=== PATIENT | female | born 1995 | race American Indian/Alaskan Native ===

== ENCOUNTER 2020-01-02 02:07 | Emergency (ER) | payer MEDICAID ==
[2020-01-02] MEDS ORDERED: Sodium Chloride 0.9% 2.5 ML Syringe FLUSH PRN (02:11)
[2020-01-02] MEDS ORDERED: Sodium Chloride 0.9% 10 ML Syringe FLUSH PRN (02:11)
[2020-01-02] MEDS ORDERED: Sodium Chloride 0.9% 1,000 ML IV ONE (02:13)
--- NOTE | 2020-01-02 02:18 | EDM.PDOC ---
ED HPI GENERAL MEDICAL PROBLEM - General Stated Complaint: AMB Time Seen by Provider: 01/02/20 02:14 Source of Information: Reports: EMS - History of Present Illness INITIAL COMMENTS - FREE TEXT/NARRATIVE: History of present illness: [] Patient was found in the street with multiple injuries that appear Idris on multiple surfaces of her trunk and extremities as well as a hematoma with some bleeding in the posterior occipital forehead. The patient is unable to tell a history. She does mumble at times. 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 She is known to 1 of the hospital workers and it is reported to me that she is known to drink alcohol but we do not know the circumstances or what happened tonight at all. Review of systems: As per history of present illness and below otherwise all systems reviewed and negative. Past medical history: As per history of present illness and as reviewed below otherwise noncontributory. Surgical history: As per history of present illness and as reviewed below otherwise noncontributory. Social history: No reported history of drug or alcohol abuse. Family history: As per history of present illness and as reviewed below otherwise noncontributory. Physical exam: Constitutional - well developed, well-nourished and in no acute distress HEENT -boggy hematoma with abrasion on the right occiput EYES - full EOM, PERRL, no icterus - no evidence of inflammation, injection, or drainage Respiratory - no respiratory distress, equal bilateral expansion, lungs clear to auscultation and no abnormal lung sounds. Multiple abrasions on the back of the chest. Cardiovascular - Regular Rhythm with S1 and S2 appreciated and no murmur, gallop or rub. GI - abdomen soft without distension or organomegaly - normal bowel sounds - no guard or rebound Musculoskeletal shoulder girdle and pelvic girdle intact without crepitation or abnormal movement. Joints and long bones appear intact. No gross deformity of long bones or joints - no tenderness, swelling or edema Neurologic -possible but resists anything painful and resisted efforts to remove her clothing to expose her for further examination. Unable to express any refusal. She makes unintelligible utterances that are clearly able to be heard. She does localize painful stimulus. 1 point she opened her eyes to command. This is intermittent. Initial Glascow varies between 9 and 10.- CN II-XII ariel ssly intact - motor sensory and coordination symmetrically normal Psychiatric - appropriate mood and affect with normal thought content Hematologic - No petechiae or purpura - mucosa appropriate color and sclera not pale - normal nail bed color and refill Integument -abrasions over extremities, which are deep. No rash or evidence of trauma - normal turgor Diagnostics: [] Therapeutics: [] Impression: [] Plan: [] Definitive disposition and diagnosis as appropriate pending reevaluation and review of above. - Related Data Allergies Allergy/AdvReac Type Severity Reaction Status Date / Time No Known Allergies Allergy Verified 09/01/18 08:35 Home Meds: Home Meds . 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: 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 Musculoskeletal History: Reports: None Neurological History: Reports: None Psychiatric History: Reports: Anxiety, Suicide Attempt, Suicidal Ideation Endocrine/Metabolic History: Reports: None Hematologic History: Reports: None Immunologic History: Reports: None Oncologic (Cancer) History: Reports: None Dermatologic History: Reports: None - Infectious Disease History Infectious Disease History: Reports: Chicken Pox - Past Surgical History Head Surgeries/Procedures: Reports: None Female Surgical History: Reports: Section Social & Family History - Family History Family Medical History: Noncontributory - Caffeine Use Caffeine Use: Reports: Coffee, Energy Drinks, Soda, Tea - Living Situation & Occupation Living situation: Reports: with Family ED ROS GENERAL - Review of Systems Review Of Systems: Unable To Obtain (Patient is nonverbal at this time) Reason Not Obtained: Not verbal ED EXAM, GENERAL - Physical Exam Exam: See Below Free Text/Narrative:: Initial physical exam as in the HPI. Repeat exams as the patient becomes more able to be examined with cooperation will be placed in the course if this happens. ED GENERAL MEDICAL PROCEDURES - Endotracheal Intubation Time of Intubation: 03:00 ET Intubation Indication: Airway Protection Preparation: Suction Pre-Oxygenation: Assisted with BVM Anesthesia Meds: Etomidate, Rocuronium Placement: Orotracheal Cords Visualized: Yes ETT Size In mm: 7 Number of Attempts: 1 Confirmed By: CO2 Indicator, Bilateral Breath Sounds, Chest Xray Tube Secured By: By RT Endotracheal Intubation Comment: After cervical spine CT was read by the radiologist the patient had a paralytic and sedation medication given and then was placed in the position for good visualization with the cord with a MAC blade. A 7 oh endotracheal tube was passed through the cords with direct visualization and noted by all parameters including end-tidal CO2, auscultation, and x-ray to be in proper position. Was fixed by an endotracheal tube mccracken and oral gastric tube insertion was initiated. Course - Vital Signs Text/Narrative:: I attended the patient in the CT scanner and the initial past did not show any large intracranial bleed or injury. Goal was for the most part grossly intact. It certainly requires further scrutiny by me and the radiologist. Rubber Process Hand confirmed not only the subdural in the left frontal but bilateral epidurals no fracture. We do not have neurosurgery nor did we even have an ICU bed available tonight. Discussed with at the emergency department of [facility] and he accepted her for emergency transfer. This would most likely be by flight Patient was intubated uneventfully using RSI. This make her stable for transport. Signs remained stable. 3:12 AM awaiting helicopter arrival the patient is stable at this point. Critical care time the total 4 patient evaluation evaluation of studies and res ults reevaluation of the patient, consultation with other providers and transport and law enforcement as well as documentation was 34 minutes of critical time that did not include the separate procedure. - Orders/Labs/Meds Orders: Active Orders 24 hr Category Date Time Status Chest 1V Frontal [CR] Stat Exams 01/02/20 02:11 Ordered Pelvis 1V or 2V [CR] Stat Exams 01/02/20 02:12 Taken COMPREHENSIVE METABOLIC PN,CMP [CHEM] Stat Lab 01/02/20 02:45 Received DRUG SCREEN, URINE [URCHEM] Stat Lab 01/02/20 02:11 Ordered ETOH [ETHANOL BLOOD MEDICAL] [CHEM] Stat Lab 01/02/20 02:45 Received LIPASE [CHEM] Stat Lab 01/02/20 02:45 Received TYPE AND SCREEN [BBK] Stat Lab 01/02/20 02:50 Received UA W/EDWARD RFLX IF INDICATED [URIN] Stat Lab 01/02/20 02:11 Ordered Sodium Chloride 0.9% [Normal Saline] 1,000 ml Med 01/02/20 02:13 Active IV .BOLUS Sodium Chloride 0.9% [Saline Flush] Med 01/02/20 02:11 Active 10 ml FLUSH ASDIRECTED PRN Sodium Chloride 0.9% [Saline Flush] Med 01/02/20 02:11 Active 2.5 ml FLUSH ASDIRECTED PRN Saline Lock Insert [OM.PC] Stat Oth 01/02/20 02:11 Ordered Medication Orders Sodium Chloride (Normal Saline) 1,000 mls @ 999 mls/hr IV .BOLUS ONE Stop: 01/02/20 03:13 Sodium Chloride (Saline Flush) 10 ml FLUSH ASDIRECTED PRN PRN Reason: Keep Vein Open Sodium Chloride (Saline Flush) 2.5 ml FLUSH ASDIRECTED PRN PRN Reason: Keep Vein Open Labs: Laboratory Tests 01/02/20 01/02/20 01/02/20 Range/Units 02:45 02:45 02:47 WBC 16.97 H (4.0-11.0) K/uL RBC 4.86 (4.30-5.90) M/uL Hgb 14.8 (12.0-16.0) g/dL Hct 45.4 (36.0-46.0) % MCV 93.4 (80.0-98.0) fL MCH 30.5 (27.0-32.0) pg MCHC 32.6 (31.0-37.0) g/dL RDW Std Deviation 48.8 (28.0-62.0) fl RDW Coeff of Sonu 14 (11.0-15.0) % Plt Count 296 (150-400) K/uL MPV 9.20 (7.40-12.00) fL Neut % (Auto) 78.2 (48.0-80.0) % Lymph % (Auto) 16.4 (16.0-40.0) % [place] % (Auto) 5.1 (0.0-15.0) % Eos % (Auto) 0.1 (0.0-7.0) % Baso % (Auto) 0.2 (0.0-1.5) % Neut # (Auto) 13.3 H (1.4-5.7) K/uL Lymph # (Auto) 2.8 H (0.6-2.4) K/uL [place] # (Auto) 0.9 H (0.0-0.8) K/uL Eos # (Auto) 0.0 (0.0-0.7) K/uL Baso # (Auto) 0.0 (0.0-0.1) K/uL Nucleated RBC % 0.0 /100WBC Nucleated RBCs # 0 K/uL POC Glucose 120 H (60-110) mg/dL HCG, Qual NEGATIVE (NEG) Meds: Medications Generic Name Dose Route Start Last Admin Trade Name Freq PRN Reason Stop Dose Admin Sodium Chloride 1,000 mls @ 999 mls/hr 01/02/20 02:13 Normal Saline IV 01/02/20 03:13 .BOLUS ONE Sodium Chloride 10 ml 01/02/20 02:11 Saline Flush FLUSH ASDIRECTED PRN Keep Vein Open Sodium Chloride 2.5 ml 01/02/20 02:11 Saline Flush FLUSH ASDIRECTED PRN Keep Vein Open Discontinued Medications Generic Name Dose Route Start Last Admin Trade Name Freq PRN Reason Stop Dose Admin Ondansetron HCl 4 mg 01/02/20 02:35 01/02/20 02:42 Zofran IVPUSH 01/02/20 02:36 4 mg ONETIME ONE Administration Ondansetron HCl Confirm 01/02/20 02:37 Zofran Administered 01/02/20 02:38 Dose 4 mg .ROUTE .STK-MED ONE Departure - Departure Time of Disposition: 03:31 Disposition: DC/Tfer to Acute Hospital 02 Condition: Serious Clinical Impression: Epidural hematoma, Subdural hematoma, Fracture of occipital bone of skull with loss of consciousness, Abrasions of multiple sites - Discharge Information - My Orders Last 24 Hours: My Active Orders 01/02/20 02:11 Chest 1V Frontal [CR] Stat DRUG SCREEN, URINE [URCHEM] Stat UA W/EDWARD RFLX IF INDICATED [URIN] Stat Sodium Chloride 0.9% [Saline Flush] 10 ml FLUSH ASDIRECTED PRN Sodium Chloride 0.9% [Saline Flush] 2.5 ml FLUSH ASDIRECTED PRN Saline Lock Insert [OM.PC] Stat 01/02/20 02:12 Pelvis 1V or 2V [CR] Stat 01/02/20 02:13 Sodium Chloride 0.9% [Normal Saline] 1,000 ml IV .BOLUS 01/02/20 02:45 COMPREHENSIVE METABOLIC PN,CMP [CHEM] Stat ETOH [ETHANOL BLOOD MEDICAL] [CHEM] Stat LIPASE [CHEM] Stat 01/02/20 02:50 TYPE AND SCREEN [BBK] Stat - Assessment/Plan Last 24 Hours: My Active Orders 01/02/20 02:11 Chest 1V Frontal [CR] Stat DRUG SCREEN, URINE [URCHEM] Stat UA W/EDWARD RFLX IF INDICATED [URIN] Stat Sodium Chloride 0.9% [Saline Flush] 10 ml FLUSH ASDIRECTED PRN Sodium Chloride 0.9% [Saline Flush] 2.5 ml FLUSH ASDIRECTED PRN Saline Lock Insert [OM.PC] Stat 01/02/20 02:12 Pelvis 1V or 2V [CR] Stat 01/02/20 02:13 Sodium Chloride 0.9% [Normal Saline] 1,000 ml IV .BOLUS 01/02/20 02:45 COMPREHENSIVE METABOLIC PN,CMP [CHEM] Stat ETOH [ETHANOL BLOOD MEDICAL] [CHEM] Stat LIPASE [CHEM] Stat 01/02/20 02:50 TYPE AND SCREEN [BBK] Stat
[2020-01-02] MEDS ORDERED: Ondansetron 4 MG/2 ML SDV IVPUSH ONE (02:35)
[2020-01-02] MEDS ORDERED: Ondansetron 4 MG/2 ML SDV ONE (02:37)
--- NOTE | 2020-01-02 02:53 | CT ---
Indication: Trauma Technique: Nonenhanced axial CT imaging through the head. Sagittal and coronal reconstructions are provided. Comparison: None Findings: There is mild bilateral middle cranial fossae all subarachnoid hemorrhage. There is also a thin subdural hematoma over the left frontal cerebral convexity, measuring 2-3 mm in thickness. There is no mass effect or midline shift. There is no cerebral edema. Segal-white matter differentiation is preserved. The ventricles are normal in size. The basal cisterns are patent. There is a nondisplaced right occipital fracture. There is also suggestion of a nondisplaced clival fracture. There is a moderate sized right parieto-occipital scalp hematoma. The mastoid air cells and middle ear cavities are aerated. There is mucosal thickening and fluid throughout the maxillary, ethmoid, sphenoid sinuses and in the left frontal sinus. Impression: 1. Mild bilateral middle cranial fossa subarachnoid hemorrhage. Thin left frontal subdural hematoma. 2. Nondisplaced right occipital fracture with right parieto-occipital scalp hematoma. Possible nondisplaced clival fracture. 3. Extensive paranasal sinus mucosal thickening and fluid. Findings may represent sinusitis. However, given the history of trauma, facial CT is recommended to exclude facial fracture. Please note that all CT scans at this facility use dose modulation, iterative reconstruction, and/or weight-based dosing when appropriate to reduce radiation dose to as low as reasonably achievable. Dictated by Patty Durant MD @ Jan 02 2020 2:44AM Signed by Dr. Patty Durant @ Jan 02 2020 2:52AM
--- NOTE | 2020-01-02 02:59 | CT ---
Indication: Trauma Technique: Nonenhanced axial CT imaging through the cervical spine. Sagittal and coronal reconstructions are provided. Comparison: None Findings: The cervical vertebral bodies are normal in height. No fracture is demonstrated. There is normal spinal alignment. The atlantoaxial and atlantooccipital relationships are maintained. There is no prevertebral edema. The intervertebral disc spaces are normal in height. There is no significant narrowing of the spinal canal or neural foramina. Right occipital fracture is noted, better demonstrated on concurrent CT. Impression: No acute fracture or traumatic malalignment of the cervical spine. Please note that all CT scans at this facility use dose modulation, iterative reconstruction, and/or weight-based dosing when appropriate to reduce radiation dose to as low as reasonably achievable. Dictated by Patty Durant MD @ Jan 02 2020 2:52AM Signed by Dr. Patty Durant @ Jan 02 2020 2:57AM
[2020-01-02] MEDS ORDERED: propofoL 50 ML ONE (03:06)
[2020-01-02 03:11] LABS: BLOOD UREA NITROGEN,BUN 9 mg/dL (7.0-18.0); CARBON DIOXIDE,CO2 22.3 mmol/L (21.0-32.0); CHLORIDE,CL 106 mmol/L (98-107); GLUCOSE RANDOM 124 mg/dL (74-106); LIPASE 108 U/L (73-393); POTASSIUM,K 3.7 mmol/L (3.5-5.1); SODIUM,NA 146 mmol/L (136-145)
[2020-01-02] MEDS ORDERED: Midazolam 5 MG/ML SDV IVPUSH ONE (03:25)
[2020-01-02] MEDS ORDERED: Rocuronium 100 MG/10 ML Syringe IVPUSH ONE (03:26)
[2020-01-02] MEDS ORDERED: Etomidate 2 MG/ML 20 ML SDV IVPUSH ONE (03:26)
[2020-01-02] MEDS ORDERED: Midazolam 1 MG/ML 2 ML SDV ONE (03:29)
--- NOTE | 2020-01-02 03:48 | CR ---
Indication: Trauma Technique: AP views of the pelvis Comparison: None Findings: The pelvic ring and proximal femora are intact. The hip joints are normally located. The soft tissues of the pelvis are grossly unremarkable. Impression: No acute abnormality. Dictated by Patty Durant MD @ Jan 02 2020 3:44AM Signed by Dr. Patty Durant @ Jan 02 2020 3:45AM
[2020-01-02] MEDS ORDERED: propofoL 100 ML ONE (03:54)
--- NOTE | 2020-01-02 04:00 | CR ---
INDICATION: Trauma, post intubation TECHNIQUE: Portable supine AP view of the chest COMPARISON: None FINDINGS: The endotracheal tube tip lies 2.5 cm above the munir. Gastric tube loops in the gastric fundus with tip returning to the gastroesophageal junction. The lungs are clear. There is no sizable pleural effusion or pneumothorax, within limitations of supine technique. The cardiomediastinal silhouette is normal. The visualized osseous structures are unremarkable. IMPRESSION: 1. Endotracheal tube in appropriate position. 2. Gastric tube loops in the gastric fundus and terminates at the gastroesophageal junction. Readjustment recommended. Dictated by Patty Durant MD @ Jan 02 2020 3:59AM Signed by Dr. Patty Durant @ Jan 02 2020 3:59AM
--- NOTE | 2020-01-02 04:04 | CR ---
Indication: Gastric tube placement Technique: Portable supine AP view of the abdomen Comparison: Chest radiograph 01/02/2020 at 3:09 a.m. Findings/Impression: Gastric tube has been readjusted, now with its tip in the expected location of the gastric fundus. There is otherwise unremarkable sonographic appearance of the abdomen. Dictated by Patty Durant MD @ Jan 02 2020 4:02AM Signed by Dr. Patty Durant @ Jan 02 2020 4:02AM
[2020-01-02 04:05] VITALS: BP 129/78; PULSE 81
[2020-01-02] MEDS ORDERED: propofoL 100 ML IV SCH (05:30)
== END 2020-01-02 04:00 ==
LOC: MW.ED 02:07
DX: S02.119A Unspecified fracture of occiput, initial encounter for closed fracture (principal); S06.5X9A Traumatic subdural hemorrhage with loss of consciousness of unspecified duration, initial encounter; S06.4X9A Epidural hemorrhage with loss of consciousness of unspecified duration, initial encounter; S20.319A Abrasion of unspecified front wall of thorax, initial encounter; S50.812A Abrasion of left forearm, initial encounter; S60.812A Abrasion of left wrist, initial encounter; S40.211A Abrasion of right shoulder, initial encounter; S80.212A Abrasion, left knee, initial encounter; S90.511A Abrasion, right ankle, initial encounter; V89.9XXA Person injured in unspecified vehicle accident, initial encounter
CPT/HCPCS: 31500; 36415; 43752; 51702; 70450; 71045; 72125; 72170; 74018; 80053; 80305; 80307; 81001; 82962; 83690; 84703; 85025; 86850; 86900; 86901; 96374; 99285; G0390; J2250; J2405; J2704; J3490; J7030; 99291

== ENCOUNTER 2020-04-04 01:33 | Emergency (ER) | payer MEDICAID ==
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
[2020-04-04 02:10] VITALS: BP 141/89; PULSE 96
== END 2020-04-04 02:00 | disposition home or self-care (01) ==
LOC: MW.ED 01:33
DX: R05 Cough (principal); R10.9 Unspecified abdominal pain; Z87.891 Personal history of nicotine dependence
CPT/HCPCS: 99282; 99283

== ENCOUNTER 2020-04-12 21:59 | Emergency (ER) | payer MEDICAID ==
[2020-04-12 22:07] VITALS: BP 141/94; PULSE 110
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
== END 2020-04-12 22:22 ==
LOC: MW.ED 21:59
DX: F10.129 Alcohol abuse with intoxication, unspecified (principal); Z79.899 Other long term (current) drug therapy
CPT/HCPCS: 99282; 99284

== ENCOUNTER 2020-06-21 20:45 | Emergency (ER) | payer MEDICAID ==
[2020-06-21] MEDS ORDERED: diphenhydrAMINE 50 MG/ML SDV IM ONE (20:56)
[2020-06-21] MEDS ORDERED: Ketorolac 30 MG/ML SDV IM STA (20:56)
[2020-06-21] MEDS ORDERED: Prochlorperazine 10 MG/2 ML SDV IM ONE (20:57)
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
--- NOTE | 2020-06-21 22:03 | CT ---
INDICATION: Headache TECHNIQUE: CT head without contrast. COMPARISON: Head CT 01/02/2020 FINDINGS: CSF spaces: Within normal limits for age. Brain parenchyma: The guardado-white differentiation is normal. No sign of mass, hemorrhage, or midline shift. Skull base and calvarium: Mucosal thickening paranasal sinuses. The visualized orbits are grossly unremarkable. Right occipital bone fracture redemonstrated, similar in appearance compared to the prior exam. IMPRESSION: 1. No intracranial bleed or mass effect. 2. Right occipital bone fracture redemonstrated, similar in appearance compared to the study of 5 months prior. Please note that all CT scans at this facility use dose modulation, iterative reconstruction, and/or weight-based dosing when appropriate to reduce radiation dose to as low as reasonably achievable. Dictated by Joe Garcia MD @ Jun 21 2020 9:54PM Signed by Dr. Joe Garcia @ Jun 21 2020 10:02PM
[2020-06-21 22:33] VITALS: BP 107/69; PULSE 66
== END 2020-06-21 22:30 | disposition home or self-care (01) ==
LOC: MW.ED 20:45
DX: S09.90XA Unspecified injury of head, initial encounter (principal); G43.909 Migraine, unspecified, not intractable, without status migrainosus; F07.81 Postconcussional syndrome; Z79.899 Other long term (current) drug therapy; W22.8XXA Striking against or struck by other objects, initial encounter
CPT/HCPCS: 70450; 96372; 99283; J0780; J1200; J1885

== ENCOUNTER 2020-09-17 00:18 | Emergency (ER) | payer MEDICAID ==
[2020-09-17] MEDS ORDERED: Octyl 2-Cyanoacrylate 1 Tube TOP ONE (00:27)
[2020-09-17] MEDS ORDERED: OLANZapine 10 MG in Water For Injection, Sterile 2.1 ML IM ONE (00:42)
[2020-09-17] MEDS ORDERED: Sodium Chloride 0.9% 2.5 ML Syringe FLUSH PRN (00:47)
[2020-09-17] MEDS ORDERED: Sodium Chloride 0.9% 10 ML Syringe FLUSH PRN (00:47)
--- NOTE | 2020-09-17 00:48 | EDM.PDOC ---
ED HPI GENERAL MEDICAL PROBLEM - General Chief Complaint: Behavioral/Psych Stated Complaint: SUICIDAL Time Seen by Provider: 09/17/20 00:19 - History of Present Illness INITIAL COMMENTS - FREE TEXT/NARRATIVE: History of present illness: [] The patient is brought in by law enforcement. She does not want to be here. She wants to leave. She says she wants to . She says she has been under psychiatric care for years and been in hospitals multiple times that it has never benefit her. She tried to kill herself tonight which is the fifth effort she is made in her life according to her. She cut her left wrist and then told her mother. She asked her mother not to call EMS or the police because he wanted to be allowed to . The patient arrives unruly and resisting attempts to help her. When I told her she would have to be examined even if we had to sedate her she allowed us to get vital signs but then she became more and really began to pick at her wound on her left wrist and try to irritate it. Review of systems: As per history of present illness and below otherwise all systems reviewed and negative. Past medical history: As per history of present illness and as reviewed below otherwise noncontributory. Surgical history: As per history of present illness and as reviewed below otherwise noncontributory. Social history: No reported history of drug or alcohol abuse. Family history: As per history of present illness and as reviewed below otherwise noncontributory. Physical exam: Constitutional - well developed, well-nourished and in no acute distress HEENT - normocephalic, no evidence of trauma - external nose and mouth normal - no mass in neck and no JVD - mucosae moist EYES - full EOM, PERRL, no icterus - no evidence of inflammation, injection, or drainage Respiratory - no respiratory distress, equal bilateral expansion, lungs clear to auscultation and no abnormal lung sounds Cardiovascular - Regular Rhythm with S1 and S2 appreciated and no murmur, gallop or rub. GI - abdomen soft without distension or organomegaly - normal bowel sounds - no guard or rebound Musculoskeletal no gross deformity of long bones or joints - no tenderness, swelling or edema Neurologic - Alert and oriented times four - CN II-XII grossly intact - motor sensory and coordination symmetrically normal Psychiatric - appropriate mood and affect with normal thought content Hematologic - No petechiae or purpura - mucosa appropriate color and sclera not pale - normal nail bed color and refill Integument -vertical laceration on the dorsal wrist of the left hand which is hemostatic. No rash or evidence of trauma - normal turgor Diagnostics: [] Therapeutics: [] Impression: [] Plan: [] Definitive disposition and diagnosis as appropriate pending reevaluation and review of above. 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 Musculoskeletal History: Reports: Fracture Neurological History: Reports: Other (See Below) Other Neuro History: Skull Fracture Psychiatric History: Reports: Anxiety, Suicide Attempt, Suicidal Ideation Endocrine/Metabolic History: Reports: None Insulin Pump Model and International Editorial Producer: None Hematologic History: Reports: None Immunologic History: Reports: None Oncologic (Cancer) History: Reports: None Dermatologic History: Reports: None - Infectious Disease History Infectious Disease History: Reports: None - Past Surgical History Head Surgeries/Procedures: Reports: None Female Surgical History: Reports: Section Social & Family History - Family History Family Medical History: No Pertinent Family History - Caffeine Use Caffeine Use: Reports: None - Living Situation & Occupation Living situation: Reports: with Family ED ROS GENERAL - Review of Systems Review Of Systems: Comprehensive ROS is negative, except as noted in HPI. ED EXAM, GENERAL - Physical Exam Exam: See Below Free Text/Narrative:: My physical exam is in the HPI #1 Interpretation EKG Interpretation Comments: KG shows a sinus rhythm with a heart rate of 60 her CA interval is 112 and QT duration is 137. The QRS axis is 95. She has a left posterior fascicular block. I do not see a readily available EKG for comparison but this EKG results and impression of no acute injury or arrhythmia. Course - Vital Signs Text/Narrative:: Patient became very combative. He was given Zyprexa and then became comfortable 2:49 AM I had discussed this patient with Dr. West at [facility] and she accepted the patient in transfer. There is no ambulance available until shift change at 8:00 in the morning. [facility] does not have a crew to send. We will keep the patient comfortable here until we can accomplish the transfer. Because of EMS transport issues the patient is in the emergency department under our care waiting transport to [facility] at the time of the end of my shift. Last Recorded V/S: Last Vital Signs Temp 36.0 C L 09/17/20 05:22 Pulse 56 L 09/17/20 08:30 Resp 16 09/17/20 08:30 BP 96/87 09/17/20 08:30 Pulse Ox 100 09/17/20 08:30 - Orders/Labs/Meds Labs: Laboratory Tests 09/17/20 09/17/20 09/17/20 Range/Units 01:10 01:10 01:10 WBC 6.71 (4.0-11.0) K/uL RBC 4.32 (4.30-5.90) M/uL Hgb 13.5 (12.0-16.0) g/dL Hct 39.6 (36.0-46.0) % MCV 91.7 (80.0-98.0) fL MCH 31.3 (27.0-32.0) pg MCHC 34.1 (31.0-37.0) g/dL RDW Std Deviation 41.2 (28.0-62.0) fl RDW Coeff of Sonu 13 (11.0-15.0) % Plt Count 276 (150-400) K/uL MPV 9.00 (7.40-12.00) fL Neut % (Auto) 44.4 L (48.0-80.0) % Lymph % (Auto) 44.1 H (16.0-40.0) % Coryell % (Auto) 7.7 (0.0-15.0) % Eos % (Auto) 3.4 (0.0-7.0) % Baso % (Auto) 0.4 (0.0-1.5) % Neut # (Auto) 3.0 (1.4-5.7) K/uL Lymph # (Auto) 3.0 H (0.6-2.4) K/uL Coryell # (Auto) 0.5 (0.0-0.8) K/uL Eos # (Auto) 0.2 (0.0-0.7) K/uL Baso # (Auto) 0.0 (0.0-0.1) K/uL Sodium 144 (136-145) mmol/L Potassium 3.3 L (3.5-5.1) mmol/L Chloride 109 H (98-107) mmol/L Carbon Dioxide 22.7 (21.0-32.0) mmol/L BUN 7 (7.0-18.0) mg/dL Creatinine 0.6 (0.6-1.0) mg/dL Est Cr Clr Drug Dosing TNP Estimated GFR (MDRD) > 60.0 ml/min Glucose 93 (74-106) mg/dL Calcium 7.9 L (8.5-10.1) mg/dL Total Bilirubin 0.3 (0.2-1.0) mg/dL AST 12 L (15-37) IU/L ALT 16 (14-63) IU/L Alkaline Phosphatase 67 (46-116) U/L Total Protein 7.1 (6.4-8.2) g/dL Albumin 3.6 (3.4-5.0) g/dL Globulin 3.5 (2.6-4.0) g/dL Albumin/Globulin Ratio 1.0 (0.9-1.6) TSH 3rd Generation 3.23 (0.36-3.74) uIU/mL HCG, Qual NEGATIVE (NEG) Salicylates 2.4 (0-20) mg/dL Acetaminophen ug/mL Ethyl Alcohol 162 mg/dL 09/17/20 Range/Units 01:10 WBC (4.0-11.0) K/uL RBC (4.30-5.90) M/uL Hgb (12.0-16.0) g/dL Hct (36.0-46.0) % MCV (80.0-98.0) fL MCH (27.0-32.0) pg MCHC (31.0-37.0) g/dL RDW Std Deviation (28.0-62.0) fl RDW Coeff of Sonu (11.0-15.0) % Plt Count (150-400) K/uL MPV (7.40-12.00) fL Neut % (Auto) (48.0-80.0) % Lymph % (Auto) (16.0-40.0) % Coryell % (Auto) (0.0-15.0) % Eos % (Auto) (0.0-7.0) % Baso % (Auto) (0.0-1.5) % Neut # (Auto) (1.4-5.7) K/uL Lymph # (Auto) (0.6-2.4) K/uL Coryell # (Auto) (0.0-0.8) K/uL Eos # (Auto) (0.0-0.7) K/uL Baso # (Auto) (0.0-0.1) K/uL Sodium (136-145) mmol/L Potassium (3.5-5.1) mmol/L Chloride (98-107) mmol/L Carbon Dioxide (21.0-32.0) mmol/L BUN (7.0-18.0) mg/dL Creatinine (0.6-1.0) mg/dL Est Cr Clr Drug Dosing Estimated GFR (MDRD) ml/min Glucose (74-106) mg/dL Calcium (8.5-10.1) mg/dL Total Bilirubin (0.2-1.0) mg/dL AST (15-37) IU/L ALT (14-63) IU/L Alkaline Phosphatase (46-116) U/L Total Protein (6.4-8.2) g/dL Albumin (3.4-5.0) g/dL Globulin (2.6-4.0) g/dL Albumin/Globulin Ratio (0.9-1.6) TSH 3rd Generation (0.36-3.74) uIU/mL HCG, Qual (NEG) Salicylates (0-20) mg/dL Acetaminophen <2.0 ug/mL Ethyl Alcohol mg/dL Meds: Medications Discontinued Medications Generic Name Dose Route Start Last Admin Trade Name Freq PRN Reason Stop Dose Admin Olanzapine 10 mg/ Sterile 2.1 mls @ 999 mls/hr 09/17/20 00:42 09/17/20 00:50 Water IM 09/17/20 00:43 999 mls/hr ONETIME ONE Administration Lorazepam Confirm 09/17/20 02:13 09/17/20 07:03 Lorazepam 2 Mg/Ml Sdv Administered 09/17/20 02:14 Not Given Dose 2 mg .ROUTE .STK-MED ONE Octyl Cyanoacrylate 1 applic 09/17/20 00:27 09/17/20 00:30 Octyl 2-Cyanoacrylate 1 Tube TOP 09/17/20 00:28 1 applic ONETIME ONE Administration Sodium Chloride 10 ml 09/17/20 00:47 Sodium Chloride 0.9% 10 Ml Syringe FLUSH ASDIRECTED PRN Keep Vein Open Sodium Chloride 2.5 ml 09/17/20 00:47 Sodium Chloride 0.9% 2.5 Ml Syringe FLUSH ASDIRECTED PRN Keep Vein Open Departure - Departure Time of Disposition: 08:48 Disposition: DC/Tfer to Psych Hosp/Unit 65 Condition: Good Clinical Impression: Suicide attempt, Wrist laceration, Depression - Discharge Information Referrals: PCP,None [Primary Care Provider] - Forms: ED Department Discharge
[2020-09-17 01:52] LABS: BLOOD UREA NITROGEN,BUN 7 mg/dL (7.0-18.0); CARBON DIOXIDE,CO2 22.7 mmol/L (21.0-32.0); CHLORIDE,CL 109 mmol/L (98-107); GLUCOSE RANDOM 93 mg/dL (74-106); POTASSIUM,K 3.3 mmol/L (3.5-5.1); SODIUM,NA 144 mmol/L (136-145)
[2020-09-17] MEDS ORDERED: LORazepam 2 MG/ML SDV ONE (02:13)
[2020-09-17 08:31] VITALS: PULSE 56
[2020-09-17 08:47] VITALS: BP 96/87
== END 2020-09-17 08:48 ==
LOC: MW.ED 00:18
DX: S61.512A Laceration without foreign body of left wrist, initial encounter (principal); F32.9 Major depressive disorder, single episode, unspecified; X78.8XXA Intentional self-harm by other sharp object, initial encounter
CPT/HCPCS: 36415; 80053; 80143; 80179; 80307; 84443; 84703; 85025; 93005; 96372; 99285; A9270; J3490; 93010; 99284

== ENCOUNTER 2020-11-19 15:12 | Emergency (ER) | payer MEDICAID | END 2020-11-19 20:35 | disposition left against medical advice (07) | LOC: MW.ED 15:12 | DX: N39.9 Disorder of urinary system, unspecified (principal); Z53.21 Procedure and treatment not carried out due to patient leaving prior to being seen by health care provider ==

== ENCOUNTER 2020-11-21 12:10 | Emergency (ER) | payer MEDICAID ==
--- NOTE | 2020-11-21 15:36 | EDM.PDOC ---
ED HPI GENERAL MEDICAL PROBLEM - General Chief Complaint: FUR SCRAPER Problem Stated Complaint: LOWER ABDOMINAL PAIN Time Seen by Provider: 11/21/20 12:45 Source of Information: Reports: Patient History Limitations: Reports: No Limitations - History of Present Illness INITIAL COMMENTS - FREE TEXT/NARRATIVE: HISTORY AND PHYSICAL: History of present illness: Patient is a 25-year-old female who presents emergency room today with concern of a retained tampon in her vagina x2 days. Patient states that her significant other has been able to feel it but is unable to reach it and get it out. Patient states that she had a tampon and overnight and the next morning went to try to remove it and states that she was unable to find the string and push the tampon in further. Patient states that she came to the emergency room the day that it occurred but the wait was so long that she ended up leaving. Patient states she is having some remainder vaginal bleeding but denies any other r esuscitative symptoms. Patient denies fever, chills, chest pain, shortness of breath, or cough. Denies headache, neck stiff ness, change in vision, syncope, or near syncope. Denies nausea, vomiting, abdominal pain, diarrhea, constipation, or dysuria. Has not noted any blood in urine or stool. Patient has been eating and drinking appropriately. Review of systems: As per history of present illness and below otherwise all systems reviewed and negative. Past medical history: As per history of present illness and as reviewed below otherwise noncontributory. Surgical history: As per history of present illness and as reviewed below otherwise noncontributory. Social history: See social history for further information Family history: As per history of present illness and as reviewed below otherwise noncontributory. Physical exam: General: Patient is alert, oriented, and in no acute distress. Patient sitting comfortably on exam table. Vitals stable and reviewed by me. HEENT: Atraumatic, normocephalic, pupils equal and reactive bilaterally, negative for conjunctival pallor or scleral icterus, mucous membranes moist, TMs normal bilaterally, throat clear, neck supple, nontender, trachea midline. No drooling or trismus noted. No meningeal signs. No hot potato voice noted. Lungs: Clear to auscultation, breath sounds equal bilaterally, chest nontender. Heart: S1S2, regular rate and rhythm without overt murmur Abdomen: Soft, nondistended, nontender. Negative for masses or hepatosplenomegaly. Negative for costovertebral tenderness. Pelvis: Stable nontender. Genitourinary: Functional Analyst at bedside Angélica Llanes RN. External genitalia grossly unremarkable. There is a moderate amount of dark blood/discharge in the vaginal vault. There is a retained dark blood saturated tampon in the vaginal vault. Following foreign body removal, negative cervical motion or uterine tenderness. Rectal: Deferred. Skin: Intact, warm, dry. No lesions or rashes noted. Extremities: Atraumatic, negative for cords or calf pain. Neurovascular unremarkable. Neuro: Awake, alert, oriented. Cranial nerves II through XII unremarkable. Cerebellum unremarkable. Motor and sensory unremarkable throughout. Exam nonfocal. Notes: Patient is a 25-year-old female who presents emergency room today with concern of retained tampon in her vaginal canal. Upon arrival to ED, patient is vitally stable and well-appearing on exam. On exam, patient does have retained dark blood saturated tampon in the vaginal vault. A [place] forceps was used to grasp the tampon and easily remove it. Patient tolerated removal well. Signs and symptoms that were prompt return to the ED thoroughly discussed with patient. Discussed importance for follow-up with a women's health care provider/primary care provider. Voices understanding and is agreeable to plan of care. Denies any further questions or concerns at this time. Diagnostics: None Therapeutics: Vaginal FB removal Prescription: None Impression: Retained foreign body in vagina Plan: 1. Follow-up with a primary care provider or women's health care provider as discussed. Return to the ED as needed and as discussed. Definitive disposition and diagnosis as appropriate pending reevaluation and review of above. - Related Data Allergies Allergy/AdvReac Type Severity Reaction Status Date / Time No Known Allergies Allergy Verified 11/21/20 14:33 Home Meds: Home Meds Topiramate [Topamax] 50 mg PO BID 04/04/20 [History] FLUoxetine HCl [Prozac] 40 mg PO DAILY 11/21/20 [History] Past Medical History - Past Health History Medical/Surgical History: Denies Medical/Surgical History HEENT History: Reports: Impaired Vision Cardiovascular History: Reports: None Respiratory History: Reports: None Gastrointestinal History: Reports: None Genitourinary History: Reports: Pyelonephritis, Renal Calculus FUR SCRAPER History: Reports: Other FUR SCRAPER History: 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 Musculoskeletal History: Reports: Fracture Neurological History: Reports: Other (See Below) Other Neuro History: Skull Fracture Psychiatric History: Reports: Anxiety, Depression, Suicide Attempt, Suicidal Ideation Endocrine/Metabolic History: Reports: None Insulin Pump Model and Excelsior Cutter: None Hematologic History: Reports: None Immunologic History: Reports: None Oncologic (Cancer) History: Reports: None Dermatologic History: Reports: None - Infectious Disease History Infectious Disease History: Reports: None - Past Surgical History Head Surgeries/Procedures: Reports: None Female Surgical History: Reports: Section Social & Family History - Family History Family Medical History: No Pertinent Family History - Caffeine Use Caffeine Use: Reports: None - Living Situation & Occupation Living situation: Reports: with Family ED ROS GENERAL - Review of Systems Review Of Systems: Comprehensive ROS is negative, except as noted in HPI. ED EXAM, GENERAL - Physical Exam Exam: See Below (see dictation) Course - Vital Signs Last Recorded V/S: Last Vital Signs Temp 97.0 F 11/21/20 14:34 Pulse 67 11/21/20 14:34 Resp 16 11/21/20 14:34 BP 117/74 11/21/20 14:34 Pulse Ox 97 11/21/20 14:34 Departure - Departure Time of Disposition: 15:35 Disposition: Home, Self-Care 01 Clinical Impression: Vaginal foreign body Qualifiers: Encounter type: initial encounter Qualified Code(s): T19.2XXA - Foreign body in vulva and vagina, initial encounter - Discharge Information Referrals: PCP,None [Primary Care Provider] - Forms: ED Department Discharge Additional Instructions: The following information is given to patients seen in the emergency department who are being discharged to home. This information is to outline your options for follow-up care. We provide all patients seen in our emergency department with a follow-up referral. The need for follow-up, as well as the timing and circumstances, are variable depending upon the specifics of your emergency department visit. If you don't have a primary care physician on staff, we will provide you with a referral. We always advise you to contact your personal physician following an emergency department visit to inform them of the circumstance of the visit and for follow-up with them and/or the need for any referrals to a consulting specialist. The emergency department will also refer you to a specialist when appropriate. This referral assures that you have the opportunity for follow-up care with a specialist. All of these measure are taken in an effort to provide you with optimal care, which includes your follow-up. Under all circumstances we always encourage you to contact your private physician who remains a resource for coordinating your care. When calling for follow-up care, please make the office aware that this follow-up is from your recent emergency room visit. If for any reason you are refused follow-up, please contact the [facility] Emergency Department at and asked to speak to the emergency department charge nurse. [facility] [address] [place] [address] [facility] [address] [place] [address] [facility] [address] [place] [address] 1. Follow-up with a primary care provider or women's health care provider as discussed. Return to the ED as needed and as discussed. Sepsis Event Note (ED) - Evaluation Sepsis Screening Result: No Definite Risk - Focused Exam Vital Signs: Vital Signs Temp Pulse Resp BP Pulse Ox 11/21/20 14:34 97.0 F 67 16 117/74 97
[2020-11-21 15:52] VITALS: BP 116/69; PULSE 65
== END 2020-11-21 15:54 | disposition home or self-care (01) ==
LOC: MW.ED 12:10
DX: T19.2XXA Foreign body in vulva and vagina, initial encounter (principal)
CPT/HCPCS: 99283

== ENCOUNTER 2020-11-28 15:23 | Emergency (ER) | payer MEDICAID ==
[2020-11-28 16:17] VITALS: BP 99/66; PULSE 72
--- NOTE | 2020-11-28 16:26 | EDM.PDOC ---
ED HPI GENERAL MEDICAL PROBLEM - General Chief Complaint: ENT Problem Stated Complaint: STREP Time Seen by Provider: 11/28/20 16:25 Source of Information: Reports: Patient History Limitations: Reports: No Limitations - History of Present Illness INITIAL COMMENTS - FREE TEXT/NARRATIVE: 25-year-old female no relevant past medical history presents for sore throat, sinus congestion worsening over the last 2 days. Patient denies chest pain. She denies shortness of breath. She denies fevers. She does note a nonproductive cough. She is concerned for streptococcal pharyngitis versus Covid. - Related Data Allergies Allergy/AdvReac Type Severity Reaction Status Date / Time No Known Allergies Allergy Verified 11/21/20 14:33 Home Meds: Home Meds Topiramate [Topamax] 50 mg PO BID 04/04/20 [History] FLUoxetine HCl [Prozac] 40 mg PO DAILY 11/21/20 [History] Past Medical History - Past Health History Medical/Surgical History: Denies Medical/Surgical History HEENT History: Reports: Impaired Vision Cardiovascular History: Reports: None Respiratory History: Reports: None Gastrointestinal History: Reports: None Genitourinary History: Reports: Pyelonephritis, Renal Calculus SHEET ROCK NAILER History: Reports: Other SHEET ROCK NAILER History: 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 Musculoskeletal History: Reports: Fracture Neurological History: Reports: Other (See Below) Other Neuro History: Skull Fracture Psychiatric History: Reports: Anxiety, Depression, Suicide Attempt, Suicidal Ideation Endocrine/Metabolic History: Reports: None Insulin Pump Model and Film Technician: None Hematologic History: Reports: None Immunologic History: Reports: None Oncologic (Cancer) History: Reports: None Dermatologic History: Reports: None - Infectious Disease History Infectious Disease History: Reports: None - Past Surgical History Head Surgeries/Procedures: Reports: None Female Surgical History: Reports: Section Social & Family History - Family History Family Medical History: No Pertinent Family History - Tobacco Use Tobacco Use Status *Q: Current Every Day Tobacco User Years of Tobacco use: 15 Packs/Tins Daily: 0.5 - Caffeine Use Caffeine Use: Reports: None - Recreational Drug Use Recreational Drug Use: No - Living Situation & Occupation Living situation: Reports: with Family ED ROS GENERAL - Review of Systems Review Of Systems: Comprehensive ROS is negative, except as noted in HPI. ED EXAM, GENERAL - Physical Exam Exam: See Below Exam Limited By: No Limitations General Appearance: Alert, WD/WN, No Apparent Distress Ears: Hearing Grossly Normal Throat/Mouth: Normal Inspection, Normal Lips, Normal Oropharynx, Normal Voice, No Airway Compromise Head: Atraumatic, Normocephalic Neck: Normal Inspection Respiratory/Chest: No Respiratory Distress, Lungs Clear, Normal Breath Sounds, No Accessory Muscle Use Cardiovascular: Normal Peripheral Pulses, Regular Rate, Rhythm Extremities: Normal Inspection Neurological: Alert, Normal Cognition, Normal Gait Psychiatric: Normal Affect, Normal Mood Skin Exam: Warm, Dry, Intact, Normal Color Course - Vital Signs Last Recorded V/S: Last Vital Signs Temp 97.6 F 11/28/20 16:15 Pulse 72 11/28/20 16:15 Resp 18 11/28/20 16:15 BP 99/66 11/28/20 16:15 Pulse Ox 98 11/28/20 16:15 - Orders/Labs/Meds Labs: Laboratory Tests 11/28/20 11/28/20 Range/Units 16:27 16:27 SARS-CoV-2 RNA (ASIA) NEGATIVE (NEGATIVE) Group A Strep (PCR) NOT DETECTED (NOT DETECT) - Re-Assessments/Exams Free Text/Narrative Re-Assessment/Exam: 11/28/20 16:30 We will get streptococcal pharyngitis and Covid test. 11/28/20 17:48 Strep and Covid test negative. Will give Decadron for pharyngitis. Departure - Departure Time of Disposition: 17:48 Disposition: Home, Self-Care 01 Condition: Good Clinical Impression: Pharyngitis Qualifiers: Pharyngitis/tonsillitis etiology: unspecified etiology Qualified Code(s): J02.9 - Acute pharyngitis, unspecified - Discharge Information Instructions: Pharyngitis Referrals: PCP,None [Primary Care Provider] - Forms: ED Department Discharge Additional Instructions: Your Covid and strep test were negative. You likely have a condition called viral pharyngitis which is very similar to strep throat but caused by a virus rather than bacteria. There is really no treatment for viral pharyngitis other than letting it run its course, however, I did give you a medication called Decadron in the emergency department which has been shown to reduce symptoms of pharyngitis by about 1 day The following information is given to patients seen in the emergency department who are being discharged to home. This information is to outline your options for follow-up care. We provide all patients seen in our emergency department with a follow-up referral. The need for follow-up, as well as the timing and circumstances, are variable depending upon the specifics of your emergency department visit. If you don't have a primary care physician on staff, we will provide you with a referral. We always advise you to contact your personal physician following an emergency department visit to inform them of the circumstance of the visit and for follow-up with them and/or the need for any referrals to a consulting specialist. The emergency department will also refer you to a specialist when appropriate. This referral assures that you have the opportunity for follow-up care with a specialist. All of these measure are taken in an effort to provide you with optimal care, which includes your follow-up. Under all circumstances we always encourage you to contact your private physician who remains a resource for coordinating your care. When calling for follow-up care, please make the office aware that this follow-up is from your recent emergency room visit. If for any reason you are refused follow-up, please contact the [facility] Emergency Department at and asked to speak to the emergency department charge nurse. Please follow up with your primary care physician. If you do not have a primary care physician, see below: [facility] [address] [place] [id number] [id number] [facility] [address] [place] [id number] Sepsis Event Note (ED) - Focused Exam Vital Signs: Vital Signs Temp Pulse Resp BP Pulse Ox 11/28/20 16:15 97.6 F 72 18 99/66 98
[2020-11-28] MEDS ORDERED: Dexamethasone 10 MG/ML SDV IM STA (17:49)
== END 2020-11-28 18:30 | disposition home or self-care (01) ==
LOC: MW.ED 15:23
DX: J02.9 Acute pharyngitis, unspecified (principal); Z72.0 Tobacco use; Z20.822 Contact with and (suspected) exposure to COVID-19
CPT/HCPCS: 87635; 87651; 96372; 99283; J1100; U0002

== ENCOUNTER 2020-12-22 16:48 | Emergency (ER) | payer MEDICAID ==
[2020-12-22] MEDS ORDERED: cefTRIAXone 500 MG in Lidocaine 1% 2 ML IM ONE (20:04)
--- NOTE | 2020-12-22 20:11 | US ---
INDICATION: Pain. Possible PID. FINDINGS: A transabdominal and endovaginal pelvic ultrasound shows a uterus of normal size, contour, echogenicity. Normal appearance of the endometrial stripe which measures 4 mm in thickness. Normal appearance of the ovaries which contain scattered follicles with the right ovary measuring 2.9 x 2.8 x 1.7 cm in the left ovary measuring 2.7 x 2.7 x 1.7 cm. Color and spectral doppler analysis shows normal arterial and venous blood flow to both ovaries. No free fluid in the pelvis. Impression : 1. No acute abnormalities of the uterus or ovaries identified. Dictated by Juan C Ball MD @ 12/22/2020 8:09:31 PM (Electronically Signed)
[2020-12-22 20:15] LABS: BLOOD UREA NITROGEN,BUN 6 mg/dL (7.0-18.0); CHLORIDE,CL 105 mmol/L (98-107); GLUCOSE RANDOM 93 mg/dL (74-106); POTASSIUM,K 4.1 mmol/L (3.5-5.1); SODIUM,NA 142 mmol/L (136-145)
--- NOTE | 2020-12-22 21:11 | EDM.PDOC ---
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 Patient states that she recently switched to a new brand of tampon and had to come to the emergency room approximately 1 month ago after she had a retained tampon that she was unable to get out. Patient states that she had a tampon in yesterday but does not exactly remember removing it, although she thinks she might have removed it but is also unsure. Patient states she started having an "abnormal "discharge today states that it was more brown/green so came to the emergency room in order to get this checked in case she left the tampon in. Patient states she is also having some lower abdominal pain which she states is similar to her menstrual cycle and is currently on her menstrual cycle so is having a hard time differentiating this. Patient denies any other symptoms or concerns. Patient denies fever, chills, chest pain, shortness of breath, or cough. Denies headache, neck stiff ness, change in vision, syncope, or near syncope. Denies nausea, vomiting, diarrhea, constipation, or dysuria. Has not noted any blood in urine or stool. Patient has been eating and drinking appropriately. Review of systems: As per history of present illness and below otherwise all systems reviewed and negative. Past medical history: As per history of present illness and as reviewed below otherwise noncontributory. Surgical history: As per history of present illness and as reviewed below otherwise noncontributory. Social history: See social history for further information Family history: As per history of present illness and as reviewed below otherwise noncontributory. Physical exam: General: Patient is alert, oriented, and in no acute distress. Patient sitting comfortably on exam table. Vitals stable and reviewed by me HEENT: Atraumatic, normocephalic, pupils equal and reactive bilaterally, negative for conjunctival pallor or scleral icterus, mucous membranes moist, TMs normal bilaterally, throat clear, neck supple, nontender, trachea midline. No drooling or trismus noted. No meningeal signs. No hot potato voice noted. Lungs: Clear to auscultation, breath sounds equal bilaterally, chest nontender. Heart: S1S2, regular rate and rhythm without overt murmur Abdomen: Soft, nondistended, nontender. Negative for masses or hepatosplenomegaly. Negative for costovertebral tenderness. Pelvis: Stable nontender. Genitourinary: Still Pump Operator at bedside Mi Colon RN. External genitalia grossly unremarkable. There is a moderate amount of dark brown/green vaginal discharge in the vaginal vault. Patient does have cervical motion tenderness with positive chandelier sign. Uterus is tender with no adnexal tenderness or fullness. Rectal: Deferred. Skin: Intact, warm, dry. No lesions or rashes noted. Extremities: Atraumatic, negative for cords or calf pain. Neurovascular unremarkable. Neuro: Awake, alert, oriented. Cranial nerves II through XII unremarkable. Cerebellum unremarkable. Motor and sensory unremarkable throughout. Exam nonfocal. Notes: Patient is a 25-year-old female who presents emergency room today with concern of abnormal discharge starting today and lower abdominal pain/cramping with concern of possible retained tampon. Upon arrival to the ED, patient is vitally stable and well-appearing on exam. Upon examination of , there is not revealed to be any retained tampon or foreign body, however, patient does have dark brown/green vaginal discharge, with positive chandelier sign and cervical motion tenderness and her uterus is tender. Concerning for pelvic inflammatory disease. Patient will be provided empirically with Rocephin 500 mg IM here in the emergency room, will also obtain basic lab work, and transvaginal ultrasound concern for possible TOA. Gonorrhea and chlamydia swab obtained and will be pending. Affirm obtained. CBC mild derangements unremarkable. CMP mild derangements unremarkable. hCG negative. Affirm unremarkable. Transvaginal ultrasound shows no acute abnormalities of the uterus or ovaries. Upon reevaluation of patient, she remains vitally stable and comfortable throughout stay in ED. Strict return precautions thoroughly discussed with patient. Discussed importance for follow-up with a women's health care provider/TIMBER SPRINKLER provider. Discussed refraining from sexual activity until she has been cleared by TIMBER SPRINKLER provider. Voices understanding and is agreeable to plan of care. Denies any further questions or concerns at this time. Diagnostics: CBC, CMP, serum hCG, urinalysis, transvaginal ultrasound, affirm, gonorrhea and chlamydia Therapeutics: Rocephin Prescription: Doxycycline, metronidazole Impression: Pelvic inflammatory disease Plan: 1. Take medication as prescribed. You can alternate ibuprofen and Tylenol as directed for pain and discomfort. Refrain from sexual intercourse until cleared by OBGYN 2. Follow-up with primary care provider and women's health care provider as discussed. Return to the ED as needed and as discussed. Definitive disposition and diagnosis as appropriate pending reevaluation and review of above. lower abd Pain Score (Numeric/FACES): 4 - Related Data Allergies Allergy/AdvReac Type Severity Reaction Status Date / Time No Known Allergies Allergy Verified 12/22/20 17:02 Home Meds: Home Meds Topiramate [Topamax] 50 mg PO BID 04/04/20 [History] FLUoxetine HCl [Prozac] 40 mg PO DAILY 11/21/20 [History] Doxycycline [Vibramycin] 100 mg PO BID 14 Days #28 cap 12/22/20 [Rx] metroNIDAZOLE [Flagyl] 500 mg PO Q12H 14 Days #28 tab 12/22/20 [Rx] Past Medical History - Past Health History Medical/Surgical History: Denies Medical/Surgical History HEENT History: Reports: Impaired Vision Cardiovascular History: Reports: None Respiratory History: Reports: None Gastrointestinal History: Reports: None Genitourinary History: Reports: Pyelonephritis, Renal Calculus TIMBER SPRINKLER History: Reports: Other TIMBER SPRINKLER History: 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 Musculoskeletal History: Reports: Fracture Neurological History: Reports: Other (See Below) Other Neuro History: Skull Fracture Psychiatric History: Reports: Anxiety, Depression, Suicide Attempt, Suicidal Ideation Endocrine/Metabolic History: Reports: None Insulin Pump Model and Horseshoer: None Hematologic History: Reports: None Immunologic History: Reports: None Oncologic (Cancer) History: Reports: None Dermatologic History: Reports: None - Infectious Disease History Infectious Disease History: Reports: None - Past Surgical History Head Surgeries/Procedures: Reports: None Female Surgical History: Reports: Section Social & Family History - Family History Family Medical History: No Pertinent Family History - Tobacco Use Tobacco Use Status *Q: Current Every Day Tobacco User Years of Tobacco use: 1 Packs/Tins Daily: 0.5 - Caffeine Use Caffeine Use: Reports: Coffee - Recreational Drug Use Recreational Drug Use: No - Living Situation & Occupation Living situation: Reports: with Family ED ROS GENERAL - Review of Systems Review Of Systems: Comprehensive ROS is negative, except as noted in HPI. ED EXAM, GENERAL - Physical Exam Exam: See Below (see dictation) Course - Vital Signs Last Recorded V/S: Last Vital Signs Temp 97.5 F 12/22/20 17:02 Pulse 64 12/22/20 21:23 Resp 16 12/22/20 21:23 BP 110/84 12/22/20 21:23 Pulse Ox 98 12/22/20 21:23 - Orders/Labs/Meds Orders: Active Orders 24 hr Category Date Time Status CHLAMYDIA AND GONORRHEA BY TMA Stat Lab 12/22/20 17:58 Received Labs: Laboratory Tests 12/22/20 12/22/20 12/22/20 Range/Units 17:58 19:22 19:22 WBC 7.73 (4.0-11.0) K/uL RBC 4.45 (4.30-5.90) M/uL Hgb 14.1 (12.0-16.0) g/dL Hct 41.3 (36.0-46.0) % MCV 92.8 (80.0-98.0) fL MCH 31.7 (27.0-32.0) pg MCHC 34.1 (31.0-37.0) g/dL RDW Std Deviation 43.6 (28.0-62.0) fl RDW Coeff of Sonu 13 (11.0-15.0) % Plt Count 293 (150-400) K/uL MPV 9.40 (7.40-12.00) fL Neut % (Auto) 51.1 (48.0-80.0) % Lymph % (Auto) 38.3 (16.0-40.0) % Cochran % (Auto) 9.3 (0.0-15.0) % Eos % (Auto) 1.0 (0.0-7.0) % Baso % (Auto) 0.3 (0.0-1.5) % Neut # (Auto) 4.0 (1.4-5.7) K/uL Lymph # (Auto) 3.0 H (0.6-2.4) K/uL Cochran # (Auto) 0.7 (0.0-0.8) K/uL Eos # (Auto) 0.1 (0.0-0.7) K/uL Baso # (Auto) 0.0 (0.0-0.1) K/uL Nucleated RBC % 0.0 /100WBC Nucleated RBCs # 0 K/uL Sodium 142 (136-145) mmol/L Potassium 4.1 (3.5-5.1) mmol/L Chloride 105 (98-107) mmol/L Carbon Dioxide 27.0 (21.0-32.0) mmol/L BUN 6 L (7.0-18.0) mg/dL Creatinine 0.6 (0.6-1.0) mg/dL Est Cr Clr Drug Dosing TNP Estimated GFR (MDRD) > 60.0 ml/min Glucose 93 (74-106) mg/dL Calcium 8.6 (8.5-10.1) mg/dL Total Bilirubin 0.4 (0.2-1.0) mg/dL AST 13 L (15-37) IU/L ALT 19 (14-63) IU/L Alkaline Phosphatase 89 (46-116) U/L Total Protein 7.4 (6.4-8.2) g/dL Albumin 4.0 (3.4-5.0) g/dL Globulin 3.4 (2.6-4.0) g/dL Albumin/Globulin Ratio 1.2 (0.9-1.6) HCG, Qual (NEG) Federica species DNA NEGATIVE (NEGATIVE) Gardnerella DNA Probe NEGATIVE (NEGATIVE) Trichomonas DNA Probe NEGATIVE (NEGATIVE) 12/22/20 Range/Units 19:22 WBC (4.0-11.0) K/uL RBC (4.30-5.90) M/uL Hgb (12.0-16.0) g/dL Hct (36.0-46.0) % MCV (80.0-98.0) fL MCH (27.0-32.0) pg MCHC (31.0-37.0) g/dL RDW Std Deviation (28.0-62.0) fl RDW Coeff of Sonu (11.0-15.0) % Plt Count (150-400) K/uL MPV (7.40-12.00) fL Neut % (Auto) (48.0-80.0) % Lymph % (Auto) (16.0-40.0) % Cochran % (Auto) (0.0-15.0) % Eos % (Auto) (0.0-7.0) % Baso % (Auto) (0.0-1.5) % Neut # (Auto) (1.4-5.7) K/uL Lymph # (Auto) (0.6-2.4) K/uL Cochran # (Auto) (0.0-0.8) K/uL Eos # (Auto) (0.0-0.7) K/uL Baso # (Auto) (0.0-0.1) K/uL Nucleated RBC % /100WBC Nucleated RBCs # K/uL Sodium (136-145) mmol/L Potassium (3.5-5.1) mmol/L Chloride (98-107) mmol/L Carbon Dioxide (21.0-32.0) mmol/L BUN (7.0-18.0) mg/dL Creatinine (0.6-1.0) mg/dL Est Cr Clr Drug Dosing Estimated GFR (MDRD) ml/min Glucose (74-106) mg/dL Calcium (8.5-10.1) mg/dL Total Bilirubin (0.2-1.0) mg/dL AST (15-37) IU/L ALT (14-63) IU/L Alkaline Phosphatase (46-116) U/L Total Protein (6.4-8.2) g/dL Albumin (3.4-5.0) g/dL Globulin (2.6-4.0) g/dL Albumin/Globulin Ratio (0.9-1.6) HCG, Qual NEGATIVE (NEG) Federica species DNA (NEGATIVE) Gardnerella DNA Probe (NEGATIVE) Trichomonas DNA Probe (NEGATIVE) Meds: Medications Discontinued Medications Generic Name Dose Route Start Last Admin Trade Name Freq PRN Reason Stop Dose Admin Ceftriaxone Sodium 500 mg/ 2 mls @ 2 mls/sec 12/22/20 20:04 12/22/20 20:41 Lidocaine HCl IM 12/22/20 20:05 2 mls/sec ONETIME ONE Administration Departure - Departure Time of Disposition: 21:11 Disposition: Home, Self-Care 01 Clinical Impression: Pelvic inflammatory disease - Discharge Information Prescriptions: metroNIDAZOLE [Flagyl] 500 mg PO Q12H 14 Days #28 tab Doxycycline [Vibramycin] 100 mg PO BID 14 Days #28 cap Instructions: Pelvic Inflammatory Disease, [id number] Referrals: PCP,None [Primary Care Provider] - Forms: ED Department Discharge Additional Instructions: The following information is given to patients seen in the emergency department who are being discharged to home. This information is to outline your options for follow-up care. We provide all patients seen in our emergency department with a follow-up referral. The need for follow-up, as well as the timing and circumstances, are variable depending upon the specifics of your emergency department visit. If you don't have a primary care physician on staff, we will provide you with a referral. We always advise you to contact your personal physician following an emergency department visit to inform them of the circumstance of the visit and for follow-up with them and/or the need for any referrals to a consulting specialist. The emergency department will also refer you to a specialist when appropriate. This referral assures that you have the opportunity for follow-up care with a specialist. All of these measure are taken in an effort to provide you with optimal care, which includes your follow-up. Under all circumstances we always encourage you to contact your private physi sofia who remains a resource for coordinating your care. When calling for follow- up care, please make the office aware that this follow-up is from your recent emergency room visit. If for any reason you are refused follow-up, please contact the [facility] Emergency Department at and asked to speak to the emergency department charge nurse. [facility] [address] [place] [address] [phone] [facility] [address] [place] [id number] [facility] [address] [place] [address] 1. Take medication as prescribed. You can alternate ibuprofen and Tylenol as directed for pain and discomfort. Refrain from sexual intercourse until cleared by OBGYN 2. Follow-up with primary care provider and women's health care provider as discussed. Return to the ED as needed and as discussed. Sepsis Event Note (ED) - Evaluation Sepsis Screening Result: No Definite Risk - Focused Exam Vital Signs: Vital Signs Temp Pulse Resp BP Pulse Ox 12/22/20 21:23 64 16 110/84 98 12/22/20 17:02 97.5 F 61 14 113/79 95 - My Orders Last 24 Hours: My Active Orders 12/22/20 17:58 CHLAMYDIA AND GONORRHEA BY TMA Stat - Assessment/Plan Last 24 Hours: My Active Orders 12/22/20 17:58 CHLAMYDIA AND GONORRHEA BY TMA Stat
[2020-12-22 21:24] VITALS: BP 110/84; PULSE 64
[2020-12-26 15:07] LABS: C.TRACHOMATIS BY TMA Negative (Negative); N.GONORRHOEAE BY TMA Negative (Negative)
== END 2020-12-22 21:24 | disposition home or self-care (01) ==
LOC: MW.ED 16:48
DX: N73.9 Female pelvic inflammatory disease, unspecified (principal); Z72.0 Tobacco use
CPT/HCPCS: 36415; 76830; 80053; 84703; 85025; 87480; 87491; 87510; 87591; 87660; 96372; 99284; J0696

== ENCOUNTER 2021-03-30 15:56 | Emergency (ER) | payer MEDICAID ==
--- NOTE | 2021-03-30 16:10 | EDM.PDOC ---
ED HPI GENERAL MEDICAL PROBLEM - General Chief Complaint: ENT Problem Stated Complaint: "WANTS TO BE TESTED FOR STREP" Time Seen by Provider: 03/30/21 16:00 Source of Information: Reports: Patient History Limitations: Reports: No Limitations - History of Present Illness INITIAL COMMENTS - FREE TEXT/NARRATIVE: HISTORY AND PHYSICAL: History of present illness: Patient is a 25-year-old female who presents to the emergency room with complaints of sore throat and cough x2 days. She is concerned she has strep throat. Cough is dry and nonproductive. Patient denies any fever, chills, headache, change in vision, syncope or near syncope. Denies any chest pain, back pain, or shortness of breath. Denies any abdominal pain, nausea, vomiting, diarrhea, constipation or dysuria. Has not noted any blood in urine or stool. Patient has been eating and drinking appropriately. No recent travel or sick contacts. Review of systems: As per history of present illness and below otherwise all systems reviewed and negative. Past medical history: As per history of present illness and as reviewed below otherwise noncontributory. Surgical history: As per history of present illness and as reviewed below otherwise noncontributory. Social history: See social history for further information Family history: As per history of present illness and as reviewed below otherwise noncontr ibutory. Physical exam: General: Well developed and well nourished 25-year-old female. Alert and orientated x 3. Nontoxic in appearance and in no acute distress. Vital signs are stable and have been reviewed by me. Nursing notes were reviewed. HEENT: Atraumatic, normocephalic, pupils equal and reactive bilaterally, negative for conjunctival pallor or scleral icterus, mucous membranes moist, maxillary sinus tenderness bilaterally, TMs normal bilaterally, throat erythematous without exudate, neck supple, nontender, trachea midline. No drooling or trismus noted. No meningeal signs. No hot potato voice noted. Lungs: Clear to auscultation bilaterally. No wheezes, rales, or rhonchi. Chest nontender. Normal work of breathing, no accessory muscles used. Heart: S1S2, regular rate and rhythm without overt murmur, gallops, or rubs. No JVD. No peripheral edema Abdomen: Soft, nondistended, nontender. Normoactive bowel sounds. Negative for masses or costovertebral tenderness. Skin: Intact, warm, dry. No lesions or rashes noted. Hematologic: No petechiae or purpra. Mucosa appropriate color and normal nail bed color and refill. Extremities: Atraumatic, moves all extremities per self without difficulty or deficits, negative for cords or calf pain. Neurovascular unremarkable. Neuro: Awake, alert, oriented. Cranial nerves II through XII unremarkable. Cerebellum unremarkable. Motor and sensory unremarkable throughout. Exam nonfocal. Psychiatric: Mood and affect are appropriate. Normal thought process. Answering questions appropriately. Please note that the patient was seen and evaluated during the 2019 SARS-CoV-2 novel coronavirus pandemic period. Community viral transmission is ongoing at time of this encounter and the emergency department is operating under pandemic response procedures. Medical Decision Making: Patient is a 25-year-old female who presents to the emergency room with complaints of sore throat and dry nonproductive cough x2 days. Physical exam is unremarkable. She is agreeable to strep, COVID and influenza testing. She does have her young son with her whom she states is asymptomatic. She has not been immunized for COVID or influenza. Patient's diagnostics are unremarkable. I have talked with the patient about today's findings, in addition to providing specific details for plan of care. Reassessment at the time of disposition demonstrates that the patient is in no acute distress. The patient is stable for discharge, counseling was provided and we discussed in great detail signs and symptoms that would prompt them to return to the Emergency Department. Medication, follow up and supportive care measures were reviewed and discussed. Voices understanding and is agreeable to plan of care. Denies any further questions or concerns at this time. Diagnostics: COVID/Influenza, Strep Therapeutics: None Prescription: Augmentin Impression: URI Plan: 1. You were evaluated today on an emergent basis. Your strep screening, COVID- 19 and influenza are negative. We will treat with a 7-day course of antibiotics for upper respiratory infection. 2. You can alternate Tylenol and ibuprofen as needed for pain and fever management. 3. We encourage you to follow up with your primary care provider for re- evaluation and further care/management. 4. If your symptoms should worsen, new symptoms develop or any of the signs and symptoms we discussed should arise please return to the emergency room or call 911 (if needed). Definitive disposition and diagnosis as appropriate pending reevaluation and review of above. - Related Data Allergies Allergy/AdvReac Type Severity Reaction Status Date / Time No Known Allergies Allergy Verified 03/30/21 16:16 Home Meds: Home Meds Topiramate [Topamax] 50 mg PO BID 04/04/20 [History] FLUoxetine HCl [Prozac] 40 mg PO DAILY 11/21/20 [History] Doxycycline [Vibramycin] 100 mg PO BID 14 Days #28 cap 12/22/20 [Rx] metroNIDAZOLE [Flagyl] 500 mg PO Q12H 14 Days #28 tab 12/22/20 [Rx] Amoxicillin/Clavulanate K [Augmentin 875-125 MG] 1 tab PO BID 7 Days #14 tablet 03/30/21 [Rx] Past Medical History - Past Health History Medical/Surgical History: Denies Medical/Surgical History HEENT History: Reports: Impaired Vision Cardiovascular History: Reports: None Respiratory History: Reports: None Gastrointestinal History: Reports: None Genitourinary History: Reports: Pyelonephritis, Renal Calculus DISTRICT SCOUT EXECUTIVE History: Reports: Other DISTRICT SCOUT EXECUTIVE History: 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 Musculoskeletal History: Reports: Fracture Neurological History: Reports: Other (See Below) Other Neuro History: Skull Fracture Psychiatric History: Reports: Anxiety, Depression, Suicide Attempt, Suicidal Ideation Endocrine/Metabolic History: Reports: None Insulin Pump Model and Continuous Improvement Analyst: None Hematologic History: Reports: None Immunologic History: Reports: None Oncologic (Cancer) History: Reports: None Dermatologic History: Reports: None - Infectious Disease History Infectious Disease History: Reports: None - Past Surgical History Head Surgeries/Procedures: Reports: None Female Surgical History: Reports: Section Social & Family History - Family History Family Medical History: No Pertinent Family History - Caffeine Use Caffeine Use: Reports: Coffee - Living Situation & Occupation Living situation: Reports: with Family ED ROS ENT - Review of Systems Review Of Systems: Comprehensive ROS is negative, except as noted in HPI. ED EXAM, ENT - Physical Exam Exam: See Below (See dictation) Course - Vital Signs Last Recorded V/S: Last Vital Signs Temp 97.3 F 03/30/21 16:13 Pulse 87 03/30/21 16:13 Resp 20 03/30/21 16:13 BP 111/57 L 03/30/21 16:13 Pulse Ox 99 03/30/21 16:13 - Orders/Labs/Meds Labs: Laboratory Tests 03/30/21 03/30/21 Range/Units 16:11 16:11 Influenza Type A RNA NEGATIVE (NEGATIVE) Influenza Type B RNA NEGATIVE (NEGATIVE) SARS-CoV-2 RNA (ASIA) NEGATIVE (NEGATIVE) Group A Strep (PCR) NOT DETECTED (NOT DETECT) Departure - Departure Time of Disposition: 17:01 Disposition: Home, Self-Care 01 Clinical Impression: URI (upper respiratory infection) Qualifiers: URI type: unspecified URI Qualified Code(s): J06.9 - Acute upper respiratory infection, unspecified - Discharge Information Prescriptions: Amoxicillin/Clavulanate K [Augmentin 875-125 MG] 1 tab PO BID 7 Days #14 tablet Instructions: Upper Respiratory Infection, Adult, [id number] Referrals: PCP,None [Primary Care Provider] - Forms: ED Department Discharge Additional Instructions: The following information is given to patients seen in the emergency department who are being discharged to home. This information is to outline your options for follow-up care. We provide all patients seen in our emergency department with a follow-up referral. The need for follow-up, as well as the timing and circumstances, are variable depending upon the specifics of your emergency department visit. If you don't have a primary care physician on staff, we will provide you with a referral. We always advise you to contact your personal physician following an emergency department visit to inform them of the circumstance of the visit and for follow-up with them and/or the need for any referrals to a consulting specialist. The emergency department will also refer you to a specialist when appropriate. This referral assures that you have the opportunity for follow-up care with a specialist. All of these measure are taken in an effort to provide you with optimal care, which includes your follow-up. Under all circumstances we always encourage you to contact your private physician who remains a resource for coordinating your care. When calling for follow-up care, please make the office aware that this follow-up is from your recent emergency room visit. If for any reason you are refused follow-up, please contact the [facility] Emergency Department at and asked to speak to the emergency department charge nurse. [facility] [address] [place] [id number] [facility] [address] [place] [address] Thank you for choosing the [facility] emergency department in [place] for your medical needs today. It was a pleasure caring for you. Today you were seen in the emergency department for sore throat and cought Your prescription was electronically sent to: [facility] Medication/Directions:Augmentin twice daily x 7 days 1. You were evaluated today on an emergent basis. Your strep screening, COVID- 19 and influenza are negative. We will treat with a 7-day course of antibiotics for upper respiratory infection. 2. You can alternate Tylenol and ibuprofen as needed for pain and fever management. 3. We encourage you to follow up with your primary care provider for re- evaluation and further care/management. 4. If your symptoms should worsen, new symptoms develop or any of the signs and symptoms we discussed should arise please return to the emergency room or call 911 (if needed). Sepsis Event Note (ED) - Focused Exam Vital Signs: Vital Signs Temp Pulse Resp BP Pulse Ox 03/30/21 16:13 97.3 F 87 20 111/57 L 99
[2021-03-30 16:58] LABS: CORONAVIRUS COVID-19 NAA NEGATIVE (NEGATIVE); INFLUENZA A NAA NEGATIVE (NEGATIVE); INFLUENZA B NAA NEGATIVE (NEGATIVE)
[2021-03-30 17:13] VITALS: BP 110/62; PULSE 68
== END 2021-03-30 17:14 | disposition home or self-care (01) ==
LOC: MW.ED 15:56
DX: J06.9 Acute upper respiratory infection, unspecified (principal); Z20.822 Contact with and (suspected) exposure to COVID-19
CPT/HCPCS: 0240U; 87651; 99283